=== PATIENT | female | born 1955 | race Caucasian/White ===

== ENCOUNTER 2017-03-29 08:20 | Outpatient (CLI) | payer BC ==
[2017-03-29 13:02] LABS: BASOPHILS % (AUTO) 0.6 %; EOSINOPHILS # (AUTO) 0.1 10^3/uL (0.0-0.7); EOSINOPHILS % (AUTO) 1.9 %; HCT - HEMATOCRIT 37.5 % (37.0-47.0); LYMPHOCYTES # (AUTO) 1.4 10^3/uL (1.5-3.5); LYMPHOCYTES % (AUTO) 37.1 %; MEAN CORPUSCULAR HEMOGLOBIN 32.7 pg (27.0-31.0); MEAN CORPUSCULAR HGB CONC 34.5 g/dL (32.0-36.0); MEAN CORPUSCULAR VOLUME 94.8 fL (81.0-99.0); MONOCYTES # (AUTO) 0.3 10^3/uL (0.0-1.0); MONOCYTES % (AUTO) 8.2 %; NEUTROPHILS % (AUTO) 52.2 %; NUCLEATED RED BLOOD CELLS AUTO 0.2 /100WBC; RED BLOOD COUNT 3.96 10^6/uL (4.20-5.40); RED CELL DISTRIBUTION WIDTH 13.1 % (12.0-15.0); UNCORRECTED WHITE BLOOD COUNT 3.9 x10^3/uL; WHITE BLOOD COUNT 3.9 x10^3/uL (4.8-10.8)
[2017-03-29 13:25] LABS: ALBUMIN/GLOBULIN RATIO 1.8 (1.0-2.2); BILIRUBIN,TOTAL < 0.2 mg/dL (0.2-1.0); BUN - BLOOD UREA NITROGEN 17 mg/dL (6-20); CALCIUM 9.6 mg/dL (8.5-10.3); CARBON DIOXIDE - CO2 24 mmol/L (21-32); CHLORIDE 111 mmol/L (101-111); CHOL/HDL RATIO 3.5 (<4.4); CHOLESTEROL 214 mg/dL; CREATININE 0.9 mg/dL (0.4-1.0); GFR - MDRD 64 (>89); GLUCOSE 93 mg/dL (70-100); HDL CHOLESTEROL 62 mg/dL; LDL/HDL RATIO 2.2 (<4.4); POTASSIUM 3.5 mmol/L (3.5-5.0); SODIUM 142 mmol/L (135-145); TOTAL PROTEIN 6.9 g/dL (6.7-8.2); TRIGLYCERIDES 77 mg/dL; VLDL CHOLESTEROL 15 mg/dL
[2017-03-29 13:48] LABS: THYROID STIMULATING HORMONE 8.08 uIU/mL (0.34-5.60)
== END 2017-03-29 08:21 | disposition home or self-care (01) ==
LOC: LAB.N 08:20
PROVIDERS: ATTEND Family Medicine
DX: E03.9 Hypothyroidism, unspecified (principal); Z79.899 Other long term (current) drug therapy
CPT/HCPCS: 36415; 80053; 80061; 84439; 84443; 85025

== ENCOUNTER 2018-05-12 15:26 | Outpatient (CLI) | payer BC | END 2018-05-12 15:27 | disposition home or self-care (01) | LOC: LAB.N 15:26 | PROVIDERS: ATTEND Nurse Practitioner Gerontology | DX: E03.9 Hypothyroidism, unspecified (principal) | CPT/HCPCS: 36415; 84443 ==

== ENCOUNTER 2018-05-20 20:53 | Outpatient (CLI) | payer BC ==
--- NOTE | 2018-05-20 23:08 | Ultrasound Report ---
Procedure Date: 05/20/2018 Accession Number: [id number] / [id number] Procedure: US - Abdomen Complete CPT Code: FULL RESULT: EXAM: ABDOMEN ULTRASOUND EXAM DATE: 05/20/2018 09:30 PM. CLINICAL HISTORY: ABDOMINAL PAIN. COMPARISON: None. TECHNIQUE: Real-time scanning was performed with static images obtained. FINDINGS: Liver: The liver is echogenic, suggestive of fatty infiltration. It measures 16.5 cm. Main portal vein flow: Hepatopetal. Gallbladder: Normal. No stones, wall thickening, or sonographic Manzano's sign. Biliary System: Common bile duct measures 3 mm. No intrahepatic or extrahepatic ductal dilatation. Pancreas: Obscured by bowel gas. Kidneys: Right: 10.4 cm longitudinally. An incidental cyst is noted. No hydronephrosis or solid mass. Left: 9.4 cm longitudinally. Normal. No contour-deforming mass, stones, or hydronephrosis. Spleen: 7.1 cm. Normal in size and echotexture. Aorta and Inferior Vena Cava: Unremarkable. Other: None. IMPRESSION: Echogenic liver, suggestive of fatty infiltration. No evidence of hydronephrosis. Attempts to contact the provider were unsuccessful on 05/20/2018 at 11 PM. RADIA
== END 2018-05-20 20:54 | disposition home or self-care (01) ==
LOC: DI 20:53
PROVIDERS: ATTEND Nurse Practitioner Gerontology
DX: R10.9 Unspecified abdominal pain (principal); R10.32 Left lower quadrant pain; K57.92 Diverticulitis of intestine, part unspecified, without perforation or abscess without bleeding
CPT/HCPCS: 76700

== ENCOUNTER 2018-09-16 19:49 | Outpatient (CLI) | payer BC ==
--- NOTE | 2018-09-17 11:10 | Ultrasound Report ---
Reason: ABDOMINAL PAIN Procedure Date: 09/16/2018 Accession Number: [id number] / [id number] Procedure: US - Pelvic w/Transvaginal CPT Code: FULL RESULT: EXAM: PELVIC ULTRASOUND EXAM DATE: 09/16/2018 08:30 PM. CLINICAL HISTORY: Abdominal pain. COMPARISON: None. TECHNIQUE: Realtime transabdominal pelvic scan performed to identify the uterus and adnexa and as an overview of other pelvic structures, followed by transvaginal scan to provide greater detail of the uterus and adnexa, with static image documentation. FINDINGS: Uterus: 6.7 x 2.2 x 4.4 cm, volume 34 cc. Anteverted position. Normal overall size and echotexture. Masses: None. Endometrium: 8 mm. A few punctate echogenic foci are seen along the endometrium which do not demonstrate ringdown/dirty shadowing. This may represent focal calcifications, nonspecific finding. No abnormal associated vascularity seen by color Doppler. Cervix: Unremarkable. Right Ovary: 2.1 x 1.0 x 1.6 cm, volume 1.7 cc. Normal echotexture and blood flow. Left Ovary: 1.9 x 2.3 x 1.9 cm, volume 4.3 cc. Normal echotexture and blood flow. There is a trace amount of left hydrosalpinx. Free Fluid: None. Other: None. IMPRESSION: Echogenic foci within the endometrium in the setting of trace of left hydrosalpinx. Correlate to examination of findings and laboratory findings related to pelvic inflammation. RADIA
== END 2018-09-16 19:50 | disposition home or self-care (01) ==
LOC: DI 19:49
PROVIDERS: ATTEND Nurse Practitioner Gerontology
DX: N70.11 Chronic salpingitis (principal)
CPT/HCPCS: 76830; 76856

== ENCOUNTER 2018-11-18 15:34 | Outpatient (CLI) | payer BC ==
--- NOTE | 2018-11-18 17:18 | XRAY Report ---
Reason: PAIN IN L WRIST Procedure Date: 11/18/2018 Accession Number: [id number] / [id number] Procedure: XRN - Wrist 4 View LT CPT Code: FULL RESULT: EXAM: LEFT WRIST RADIOGRAPHY EXAM DATE: 11/18/2018 03:49 PM. CLINICAL HISTORY: PAIN IN L WRIST. Post fall COMPARISON: None. TECHNIQUE: 4 views. FINDINGS: Bones: On the oblique projection there is slight irregularity along the radial aspect of the distal radial metaphysis. This may represent overlapping bony structures but given the history of trauma if symptoms persist follow-up imaging in 7-14 days is suggested. No other fractures or bone lesions. Joints: No subluxations. Soft Tissues: Minimal soft tissue swelling. IMPRESSION: Slight irregularity of the distal lateral radius may represent overlapping structures but a nondisplaced fracture is not absolutely excluded. If clinical symptoms persist suggest follow-up imaging in 7-14 days. RADIA
== END 2018-11-18 15:35 | disposition home or self-care (01) ==
LOC: DI.N 15:34
PROVIDERS: ATTEND Nurse Practitioner Gerontology
DX: M25.532 Pain in left wrist (principal)

== ENCOUNTER 2019-04-08 12:15 | Outpatient (CLI) | payer BC ==
[2019-04-08] MEDS ORDERED: IOVERSOL 320 50 ML VIAL ONE (12:35)
[2019-04-08] MEDS ORDERED: IOVERSOL 320 100 ML VIAL IVP ONE ×2 (12:35→13:34)
[2019-04-08 12:51] LABS: CREATININE 0.7 mg/dL (0.4-1.0)
[2019-04-08] MEDS ORDERED: IOVERSOL 320 50 ML VIAL PO ONE (13:34)
--- NOTE | 2019-04-09 19:19 | CT Report ---
Reason: ABDOMINAL PAIN,DIVERTICULITIS,SEQUELAE OF FRACTURE Procedure Date: 04/08/2019 Accession Number: [id number] / [id number] Procedure: CT - Abdomen/Pelvis W CPT Code: FULL RESULT: EXAM: CT ABDOMEN AND PELVIS EXAM DATE: 04/08/2019 01:30 PM. CLINICAL HISTORY: Abdominal pain, diverticulitis, sequelae of fracture. COMPARISONS: ABDOMEN COMPLETE 05/20/2018. TECHNIQUE: Routine helical CT imaging was performed through the abdomen and pelvis. IV contrast: Yes . Enteric contrast: Yes. Reconstructions: Coronal and sagittal. In accordance with CT protocol optimization, one or more of the following dose reduction techniques were utilized for this exam: automated exposure control, adjustment of mA and/or KV based on patient size, or use of iterative reconstructive technique. FINDINGS: Lung Bases: Unremarkable. Liver: Small hypodensity at the dome is probably a cyst. No suspicious masses. Gallbladder/Bile Ducts: Unremarkable. Spleen: Unremarkable. Pancreas: Unremarkable. Adrenal Glands: Unremarkable. Kidneys: Unremarkable. No suspicious masses or hydronephrosis. Peritoneal Cavity/Bowel: Evidence of previous right colonic surgery and probable ileocolic anastomosis. Colonic diverticulosis. No bowel obstruction or inflammatory process seen. Please see below for what is suspected to be the urinary bladder. No free air or significant free fluid. No masses or adenopathy. No excessive stool burden. Pelvic Organs: Very large probable neobladder in the central and right hemipelvis containing several massive stones, measuring up to about 6 x 6 x 5 cm, axial image 52 and sagittal image 38. No definite neobladder mass or acute inflammation. There appears to be a urostomy track in the right periumbilical region. Uterus and adnexa are unremarkable. Vasculature: No aneurysms or other significant abnormality. Bones: No significant abnormality. Other: None. IMPRESSION: 1. No acute inflammatory or obstructive process seen in the abdomen or pelvis. 2. 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 3. Colonic diverticulosis. [facility]IA
== END 2019-04-08 12:16 | disposition home or self-care (01) ==
LOC: LAB 12:15 → DI 12:16
PROVIDERS: ATTEND Obstetrics & Gynecology
DX: N21.0 Calculus in bladder (principal); N70.11 Chronic salpingitis; K57.30 Diverticulosis of large intestine without perforation or abscess without bleeding; Z78.0 Asymptomatic menopausal state; S62.102S Fracture of unspecified carpal bone, left wrist, sequela
CPT/HCPCS: 74177; 82565; Q9967